=== PATIENT | female | born 1985 | race Caucasian/White ===

== ENCOUNTER 2017-08-14 15:14 | Emergency (ER) | payer SELFPAY ==
[2017-08-14 15:59] LABS: #Basophils 0.1 thou/uL (0.0-0.2); #Eosinphils 0.1 thou/uL (0.0-0.7); #Lymphocytes 2.3 thou/uL (1.20-3.40); #Monocytes 0.6 thou/uL (0.11-0.59); #Neutrophils 4.7 thou/uL (1.40-6.50); %Basophils 0.8 % (0.0-1.0); %Eosinophils 1.1 % (0.0-10.0); %Lymphocytes 29.4 % (21.0-51.0); %Monocytes 7.5 % (0.0-10.0); Hematocrit 36.7 % (36.0-47.0); Mean Platelet Volume 8.3 fL (7.4-10.4); Red Blood Cell (RBC) Count 4.08 mill/uL (4.20-5.40); White Blood Cell (WBC) Count 7.7 thou/uL (4.8-10.8)
[2017-08-14 16:03] LABS: ALT (SGPT) 12 U/L (8-55); AST (SGOT) 13 U/L (5-34); Alkaline Phosphatase 60 U/L (40-150); Anion Gap 13 mmol/L (10-20); BUN (Urea Nitrogen) 11 mg/dL (7.0-18.7); Bilirubin, Total 0.6 mg/dL (0.2-1.2); CK (CPK) 70 U/L (29-168); Calc. Creatinine Clearance 0 mL/min (70-130); Calcium 9.6 mg/dL (7.8-10.44); Carbon Dioxide 24 mmol/L (22-29); Chloride 101 mmol/L (98-107); Estimated GFR-MDRD Greater than 90; Globulin 3.3 g/dL (2.4-3.5); Protein, Total 7.5 g/dL (6.0-8.3)
[2017-08-14 16:07] LABS: Troponin I Less than 0.010 ng/mL (< 0.028)
--- NOTE | 2017-08-14 16:30 | RAD ---
SINGLE VIEW CHEST: Date: 08/14/17 COMPARISON: 12/07/14. HISTORY: Chest pain. FINDINGS: Single view of the chest shows a normal sized cardiomediastinal silhouette. There is no evidence of c onsolidation, mass, or pleural effusion. The bones are unremarkable. IMPRESSION: No evidence of acute cardiopulmonary disease. POS: [facility]
== END 2017-08-14 17:14 | disposition left against medical advice (07) ==
LOC: ERS 15:14
DX: Z53.21 Procedure and treatment not carried out due to patient leaving prior to being seen by health care provider (principal); D64.9 Anemia, unspecified
CPT/HCPCS: 71010; 80053; 82553; 84484; 85025; 93005

== ENCOUNTER 2018-12-10 22:17 | Emergency (ER) | payer SELFPAY | END 2018-12-11 00:40 | disposition left against medical advice (07) | LOC: ERS 22:17 | DX: Z53.21 Procedure and treatment not carried out due to patient leaving prior to being seen by health care provider (principal) ==

== ENCOUNTER 2023-01-01 10:15 | Emergency (ER) | payer OTHER ==
[2023-01-01] MEDS ORDERED: Ketorolac Tromethamine 30 MG/ML VIAL ONE (11:26)
[2023-01-01] MEDS ORDERED: predniSONE 20 MG TAB ONE (11:30)
== END 2023-01-01 12:11 | disposition home or self-care (01) ==
LOC: ERS 10:15
DX: M25.511 Pain in right shoulder (principal)
CPT/HCPCS: 96372; J1885; J7512